=== PATIENT | female | born 1990 | race Two or more races ===

== ENCOUNTER 2023-12-18 18:51 | Emergency (ER) | payer MEDICAID, OTHER ==
[~2023-12-18] VITALS: Ht 162.6 cm; Wt 76.8 kg
[2023-12-18 20:30] VITALS: BP 144/77; PULSE 104; RESP 16; TEMP 98.7; O2SAT 98
[2023-12-18] MEDS: SODIUM CHLORIDE 0.9% 1,000 ML IV ONE (20:37)
[2023-12-18] MEDS: HYDROcodone-ACET 5/325MG TAB PO ONE (20:42)
[2023-12-18] MEDS: TETANUS-DIPTH-ACEL PERTUSSIS 0.5ML SYR Tdap IM ONE (20:43)
[2023-12-18 20:50] LABS: Basophils # (auto) 0.1 10 ^3/uL (0-0.2); Basophils % (auto) 0.5 % (0.0-2.0); Hemoglobin 10.6 g/dL (12.2-16.2); Monocytes # (auto) 0.4 10 ^3/uL (0-1.3)
[2023-12-18 20:52] LABS: Eosinophils # (auto) 0.1 10 ^3/uL (0-0.8); Eosinophils % (auto) 0.5 % (0.0-7.0); Hematocrit 32.8 % (36.0-46.0); Lymphocytes # (auto) 2.4 10 ^3/uL (0.4-5.4); Lymphocytes % (auto) 20.3 % (10.0-50.0); Mean Corpuscular Hemoglobin 24.7 pg (28.0-32.0); Mean Corpuscular Hgb Conc. 32.3 g/dL (32.0-36.0); Mean Corpuscular Volume 76.6 fL (80.0-100.0); Monocytes % (auto) 3.8 % (0.0-12.0); Neutrophils # (auto) 8.7 10 ^3/uL (1.6-8.6); Neutrophils % (auto) 74.9 % (37.0-80.0); Platelet Count (auto) 405 10^3/uL (140-450); Red Blood Cells 4.27 10^6/uL (4.0-5.20); Red Cell Distribution Width 14.8 % (11.8-14.3); White Blood Cell 11.7 10^3/uL (4.4-10.8)
[2023-12-18 21:02] LABS: Chloride 101 mmol/L (98-107); Potassium 3.6 mmol/L (3.5-5.1); Sodium 133 mmol/L (136-145)
[2023-12-18 21:03] LABS: Anion Gap 4 (5-15); Carbon Dioxide 28 mmol/L (20-31); INR 0.97 (0.9-1.15); Partial Thromboplastin Time 25.6 SEC (24.5-34.5); Prothrombin Time 10.3 sec (9.3-11.8)
[2023-12-18 21:08] LABS: Blood Urea Nitrogen 9 mg/dL (9-23)
[2023-12-18 21:18] LABS: Glucose 466 mg/dL (74-106)
[2023-12-18] MEDS ORDERED: IBUP-1455 PO (21:32)
[2023-12-18] MEDS ORDERED: CEPH500C PO (21:32)
[2023-12-18 22:09] LABS: Urine Bacteria None Seen /hpf (None Seen)
[2023-12-18 22:30] LABS: Urine Blood 2+ /uL (Negative); Urine Clarity Clear (Clear); Urine Color Colorless (Yellow); Urine Protein, UAD Negative (Negative); Urine Specific Gravity 1.038 (1.001-1.035); Urine Urobilinogen Normal (Negative); Urine WBC 3 /hpf (0 - 5); Urine pH 5.5 (5.0-9.0)
== END 2023-12-18 22:37 | disposition home or self-care (01) ==
LOC: ER 19:00
DX: S21.132A Puncture wound without foreign body of left front wall of thorax without penetration into thoracic cavity, initial encounter (principal); R10.2 Pelvic and perineal pain; E11.65 Type 2 diabetes mellitus with hyperglycemia; F17.210 Nicotine dependence, cigarettes, uncomplicated; Z98.890 Other specified postprocedural states; W22.8XXA Striking against or struck by other objects, initial encounter; Y93.89 Activity, other specified; Y92.89 Other specified places as the place of occurrence of the external cause; Y99.8 Other external cause status
CPT/HCPCS: 12001; 36415; 71250; 80048; 81001; 82962; 84702; 85025; 85610; 85730; 90471; 90715; 96360; 99285; J7030